=== PATIENT | female | born 1935 | race Caucasian/White ===

== ENCOUNTER 2018-03-12 12:55 | Emergency (ER) | payer MEDICARE ==
--- NOTE | 2018-03-12 14:10 | RAD ---
PA AND LATERAL VIEWS CHEST: Date: 03/12/18 HISTORY: Injury, cough, congestion. FINDINGS: The heart size is borderline. A large hiatal hernia is present. No focal areas of consolidation, pneu mothoraces, leesa pulmonary edema, or pleural effusions are seen. IMPRESSION: 1. No acute cardiopulmonary process. 2. Hiatal hernia. POS: [facility]
--- NOTE | 2018-03-12 14:11 | RAD ---
LEFT HIP 2 VIEWS: Date: 03/12/18 HISTORY: Injury, left hip pain. FINDINGS/IMPRESSION: There is a questionable fracture involving the lateral aspect of the junction of the head and neck. F urther evaluation with CT scan would be helpful. POS: [facility]
--- NOTE | 2018-03-12 15:02 | CT ---
CT LEFT HIP WITH CORONAL AND SAGITTAL REFORMATIONS: Date: 03/12/18 HISTORY: Left hip pain, fall, abnormal x-ray. FINDINGS/IMPRESSION: Degenerative changes are seen in the left hip joint. No acute fracture or dislocation is identified. Incidental note is made of sigmoid diverticulosis. POS: [facility]
== END 2018-03-12 15:05 | disposition home or self-care (01) ==
LOC: NAV ERS 12:55
DX: S80.212A Abrasion, left knee, initial encounter (principal); J06.9 Acute upper respiratory infection, unspecified; M79.605 Pain in left leg; K21.9 Gastro-esophageal reflux disease without esophagitis; I10 Essential (primary) hypertension; J42 Unspecified chronic bronchitis; Z79.4 Long term (current) use of insulin; Z79.891 Long term (current) use of opiate analgesic; Z79.899 Other long term (current) drug therapy; X58.XXXA Exposure to other specified factors, initial encounter
CPT/HCPCS: 71046; 93005

== ENCOUNTER 2018-09-06 13:41 | Emergency (ER) | payer MEDICARE ==
--- NOTE | 2018-09-06 14:32 | RAD ---
SINGLE VIEW OF THE PELVIS: 09/06/18 COMPARISON: None. HISTORY: Fall six days ago with pelvic pain. FINDINGS: A single view of the pelvis shows no evidence of acute fracture or dislocation. Mild degenerative tracy nges are seen in both hips. Degenerative changes are see in the lumbar spine. IMPRESSION: No evidence of acute osseous abnormality. POS: [facility]
--- NOTE | 2018-09-06 15:15 | RAD ---
LEFT HIP TWO VIEWS: HISTORY: Fall with left hip pain. COMPARISON: 03/12/2018 FINDINGS: Two views of the right hip show no evidence of acute fracture or dislocation. Moderate degenerative changes are seen in the left hip. Vascular calcifications are seen. IMPRESSION: Moderate left hip osteoarthritis without acute osseous abnormality. POS: [facility]
--- NOTE | 2018-09-06 15:21 | RAD ---
LEFT KNEE FOUR VIEWS: 09/06/2018 PROVIDED CLINICAL HISTORY: Pain, status post fall. FINDINGS: Chondrocalcinosis and vascular calcifications are noted. There is no evidence of fracture or other a cute osseous abnormality. If there is persistent clinical concern, conservative management and follow-up imaging are advised. IMPRESSION: As above. POS: [facility]
== END 2018-09-06 14:56 | disposition home or self-care (01) ==
LOC: NAV ERS 13:41
DX: M16.12 Unilateral primary osteoarthritis, left hip (principal); M17.12 Unilateral primary osteoarthritis, left knee; E11.9 Type 2 diabetes mellitus without complications; I10 Essential (primary) hypertension
CPT/HCPCS: 72170